=== PATIENT | female | born 1985 | race Caucasian/White ===

== ENCOUNTER 2020-11-05 04:25 | Emergency (ER) | payer OTHER ==
[~2020-11-05] VITALS: Ht 157.5 cm; Wt 63.5 kg
[2020-11-05 04:41] VITALS: BP 120/77
[2020-11-05] MEDS ORDERED: KETOROLAC TROMETH 60MG/2ML VIAL IM ONE (05:45)
[2020-11-05] MEDS ORDERED: methylPREDNISolone SOD SUCC 125 MG/2 ML VL IM ONE (05:45)
== END 2020-11-05 06:58 | disposition home or self-care (01) ==
LOC: ER 04:25
DX: S83.92XA Sprain of unspecified site of left knee, initial encounter (principal); S83.91XA Sprain of unspecified site of right knee, initial encounter; W10.9XXA Fall (on) (from) unspecified stairs and steps, initial encounter; Y93.89 Activity, other specified; Y92.89 Other specified places as the place of occurrence of the external cause; Y99.0 Civilian activity done for income or pay
CPT/HCPCS: 73562; 96372; 99284; J1885; J2930